=== PATIENT | male | born 1980 ===

== ENCOUNTER 2022-11-30 05:11 | Day surgery (SDC) | payer OTHER ==
[~2022-11-30] VITALS: Ht 172.7 cm; Wt 74.8 kg
[2022-11-30] MEDS ORDERED: PERCOCET 5-3251 EACH PO (08:31)
[2022-11-30] MEDS ORDERED: RECTICARE30 GM TOP (08:31)
== END 2022-11-30 13:45 | disposition home or self-care (01) ==
LOC: CIR.AMB 05:11
PROVIDERS: ATTEND Surgery
DX: K60.3 Anal fistula (principal); R19.5 Other fecal abnormalities; I10 Essential (primary) hypertension; Z20.822 Contact with and (suspected) exposure to COVID-19